=== PATIENT | female | born 1980 | race Hispanic/Latino ===

== ENCOUNTER 2023-12-20 08:42 | Day surgery (SDC) | payer OTHER ==
[2023-12-20] VITALS (14 sets, daily range): BP systolic 88–113; BP diastolic 40–76; PULSE 52–68; RESP 10–22
[~2023-12-20] VITALS: Ht 172.7 cm; Wt 82.1 kg
[2023-12-20] MEDS ORDERED: METF-444 PO (11:30)
[2023-12-20] MEDS ORDERED: ESTR1PAT73 TD (11:30)
[2023-12-20] MEDS ORDERED: METO-408 PO (11:30)
[2023-12-20] MEDS ORDERED: EMPA10TA PO (11:30)
[2023-12-20] MEDS ORDERED: FENO145T26 PO (11:30)
[2023-12-20] MEDS: 0.9%NACL 1000ML 1,000 ML IV ONE (11:41)
[2023-12-20] MEDS ORDERED: PROPOFOL 10 MG/ML 20ML VIAL IV ONE (11:44)
[2023-12-20] MEDS: ONDANSETRON 4MG INJ ONE (12:42)
[2023-12-20] MEDS: METOCLOPRAMIDE 10 MG/2 ML VIAL ONE (12:43)
== END 2023-12-20 13:40 | disposition home or self-care (01) ==
LOC: DAH 08:42 → ENDO 08:42
PROVIDERS: ATTEND Internal Medicine Gastroenterology
DX: R10.11 Right upper quadrant pain (principal); K29.50 Unspecified chronic gastritis without bleeding; R94.5 Abnormal results of liver function studies; R74.8 Abnormal levels of other serum enzymes; R19.7 Diarrhea, unspecified; K29.70 Gastritis, unspecified, without bleeding; K76.0 Fatty (change of) liver, not elsewhere classified; G43.909 Migraine, unspecified, not intractable, without status migrainosus; E78.5 Hyperlipidemia, unspecified; E11.9 Type 2 diabetes mellitus without complications; Z90.710 Acquired absence of both cervix and uterus; Z90.49 Acquired absence of other specified parts of digestive tract; Z98.890 Other specified postprocedural states; Z83.3 Family history of diabetes mellitus; Z80.0 Family history of malignant neoplasm of digestive organs; Z72.89 Other problems related to lifestyle; Z79.84 Long term (current) use of oral hypoglycemic drugs; Z79.899 Other long term (current) drug therapy
CPT/HCPCS: 43237; 82948; 43239; J7030; J2704; J2405; J2765; A4620; A4215 ×2; A4223; A4222; A4221; A4663; A4606; 43259; J3490

== ENCOUNTER → 2024-06-10 | Outpatient (CLI) | payer OTHER ==
[~2024-06-10] MED LIST: EMPA10TA PO; ESTR1PAT73 TD; FENO145T26 PO; METF-444 PO; METO-408 PO
--- NOTE | 2024-06-10 15:09 | HMCIMG ---
NM GASTRIC EMPTYING STUDY REASON: ABDOMINAL DISTENSION COMPARISON: None TECHNIQUE: Routine imaging protocol was performed following ingestion of 1.5 mCi technetium 99m sulfur colloid mixed with 2 scrambled eggs. FINDINGS: Time activity curve yields a T1 half upper limits of normal at 87 minutes, the upper lobe limited borderline is 90 minutes. There was no reflux during the exam. IMPRESSION: 1. Normal gastric emptying exam, the T1 half is 87 minutes.
== END | disposition home or self-care (01) ==
LOC: RAH 11:05
PROVIDERS: ATTEND Internal Medicine Gastroenterology
DX: R14.0 Abdominal distension (gaseous) (principal); R11.0 Nausea
CPT/HCPCS: 78264; A9541